=== PATIENT | male | born 1945 | race Caucasian/White ===

== ENCOUNTER 2016-10-24 13:38 | Observation (INO) ==
--- NOTE | 2016-10-24 13:48 | Emergency Department Note ---
Disposition Clinical Impression: Acute kidney injury, UTI (urinary tract infection), Pneumonia Disposition: Admitted As Inpatient Referrals: Aliyah Moore MD [Primary Care Provider] - General Adult HPI - General Stated complaint: dehydrated Time Seen by Provider: 10/24/16 13:48 Source: patient Mode of arrival: EMS Nursing Notes Reviewed: Yes Vital Signs Reviewed: Yes - History of Present Illness HPI Narrative: 71-year-old obese white male presents to emergency department via ambulance, from local [facility] with apparent dehydration. The patient is able to provide no history. He says that he is not sure why he is here, but says he has been coughing a little bit. - Related Data Home Medications Medication Instructions Recorded Confirmed Carvedilol [Coreg] 25 mg PO BID 04/20/15 10/24/16 Isosorbide MONOnitrate (24 HR) 120 mg PO DAILY 04/20/15 10/24/16 [Imdur] Lisinopril [Zestril] 40 mg PO DAILY 04/20/15 10/24/16 Omeprazole [PriLOSEC] 20 mg PO DAILY 04/20/15 10/24/16 Atorvastatin [Lipitor] 20 mg PO HS 05/28/15 10/24/16 Citalopram [CeleXA] 20 mg PO DAILY 05/28/15 10/24/16 Magnesium Oxide [Mag-Ox] 400 mg PO BID 05/28/15 10/24/16 Warfarin [Coumadin] 9 mg PO DAILY 05/28/15 10/24/16 Ipratropium/Albuterol Neb [Duoneb] 3 ml IH Q6HR 06/20/15 10/24/16 L. Acidophilus/Pectin, [place] 1 each PO BID 06/20/15 10/24/16 [Acidophilus Probiotic Capsule] Ferrous Sulfate 325 mg PO DAILY 07/21/15 10/24/16 Furosemide [Lasix] 80 mg PO BID 07/21/15 10/24/16 Gabapentin [Neurontin] 300 mg PO TID 07/21/15 10/24/16 Diltiazem CD (24hr) [Cardizem CD] 180 mg PO DAILY 08/21/15 10/24/16 Insulin ASPART [NovoLOG] 6 unit SQ TIDWM 08/21/15 10/24/16 Vitamin B Complex/Vit C/Vit E 1 tab PO DAILY 08/21/15 10/24/16 [Stresstab] Cholecalciferol (Vitamin D3) 50,000 unit PO QMONTH 07/26/16 10/24/16 [Vitamin D] Insulin DETEMIR [Levemir] 60 unit SQ HS 07/26/16 10/24/16 Metformin [Glucophage] 500 mg PO DAILY 07/26/16 10/24/16 Tizanidine HCl [Zanaflex] 2 mg PO QID 07/26/16 10/24/16 Fluticasone/Salmeterol [Advair 1 each IH BID 10/24/16 10/24/16 500-50 Diskus] Promethazine [Phenergan] 25 mg RC Q4H PRN 10/24/16 10/24/16 Previous Rx's Medication Instructions Recorded Docusate [Colace] 100 mg PO BID PRN #0 capsule 08/30/15 Montelukast [Singulair] 10 mg PO DAILY tablet 08/30/15 Spironolactone [Aldactone] 25 mg PO DAILY tablet 08/30/15 Allergies Allergy/AdvReac Type Severity Reaction Status Date / Time No Known Allergies Allergy Verified 07/21/15 20:15 Limitations: ROS unobtainable due to patients medical condition Respiratory: Reports: cough Past Medical History - Past Medical History Medical history: Reports: atrial fibrillation, CHF, COPD, coronary artery disease, diabetes, GERD, hyperlipidemia, hypertension, myocardial infarction, peripheral artery disease, renal disease, other Surgical history: Reports: other Psychiatric history: Reports: anxiety - Social History Smoking Status: Former smoker Smokeless Tobacco Status: No Alcohol use: Reports: none Drug use: Reports: none Physical Exam - General General appearance: alert - Head Head exam: atraumatic, normocephalic, normal inspection - Eye Eye exam: Present: normal appearance, PERRL, EOMI - ENT ENT exam: normal exam, normal oropharynx, mucous membranes moist - Neck Neck exam: Present: normal inspection, full ROM, trachea midline - Chest Chest inspection: Present: normal inspection, symmetric chest wall rise - Respiratory Respiratory exam: Present: normal lung sounds bilaterally. Absent: respiratory distress, wheezes - Cardiovascular Cardiovascular exam: Present: regular rate, normal rhythm, normal heart sounds - Abdominal Exam Abdominal exam: Present: soft, Non-Tender. Absent: tenderness, distention, guarding, rebound, rigidity - Extremities Exam Extremities exam: Present: full ROM, normal capillary refill, other (Right AKA) . Absent: tenderness - Expanded Lower Extremity Exam Hip/Pelvis exam: Present: normal inspection, full ROM - Back Exam Back exam: Present: normal inspection, full ROM. Absent: tenderness, CVA tenderness (R), CVA tenderness (L) - Neurological Exam Neurological exam: Present: alert, CN II-XII intact, other (Oriented to person) . Absent: motor sensory deficit - Psychiatric Psychiatric exam: Present: normal affect, normal mood - Skin Skin exam: Present: warm, dry, intact, normal color Course Course Narrative: Patient remained stable throughout his emergency department stay. After reviewing his labs and x-ray the patient will be made for the hospital for Dr. Walton. Dr. Walton at 1500 and holding orders will be written for him. Vital Signs Temperature 97.0 F L 10/24/16 14:00 Pulse Rate 69 10/24/16 14:00 Respiratory Rate 18 10/24/16 14:00 Blood Pressure 109/61 10/24/16 14:00 O2 Sat by Pulse Oximetry 98 10/24/16 14:00 Temperature 97.0 F L 10/24/16 14:00 Pulse Rate 81 10/24/16 15:09 Respiratory Rate 20 10/24/16 15:09 Blood Pressure 95/56 10/24/16 15:09 O2 Sat by Pulse Oximetry 95 10/24/16 15:09 Oxygen Delivery Oxygen Delivery Nasal Cannula Medical Decision Making - Lab Data Lab results reviewed: Yes I reviewed the patient's lab results. Result diagrams: 10/24/16 14:15 10/24/16 14:15 Lab Results 10/24/16 10/24/16 10/24/16 Range/Units 14:15 14:15 14:17 WBC 13.1 H (4.3-11.1) K/mcL RBC 4.16 L (4.19-5.50) M/mcL Hgb 11.0 L (12.9-16.9) g/dL Hct 35.4 L (37.5-50.1) % MCV 85.1 (83.0-100.0) fL MCH 26.4 L (28.0-33.3) pg MCHC 31.1 L (31.6-35.5) g/dL RDW 15.8 H (11.5-14.5) % Plt Count 221 (140-400) K/mcL MPV 10.6 (9.4-12.4) fL Immature Gran % 0.6 (0-4) % Seg Neutrophils % 82.8 % Lymphocytes % 10.6 % Monocytes % 4.1 % Eosinophils % 1.4 % Basophils % 0.5 % Neutrophils # 10.9 H (1.6-8.9) K/mcL Lymphocytes # 1.4 (0.6-4.6) K/mcL Monocytes # 0.5 (0.0-1.3) K/mcL Eosinophils # 0.2 (0.0-0.6) K/mcL Basophils # 0.1 (0.0-0.2) K/mcL Sodium 134 L (136-145) mEq/L Potassium 5.6 H (3.5-4.5) mEq/L Chloride 97 L (98-109) mEq/L Carbon Dioxide 26 (19-29) mEq/L BUN 80 H (8-26) mg/dL Creatinine 3.24 H (0.72-1.25) mg/dL Est GFR ( Amer) 23 L (> 60) Est GFR (Non-Af Amer) 19 L (> 60) BUN/Creatinine Ratio 25 (6-26) Glucose 251 H (70-99) mg/dL Calculated Osmolality 311 H (280-300) Calcium 9.5 (8.6-10.8) mg/dL Total Bilirubin 0.3 (0.2-1.2) mg/dL AST 12 (5-34) Units/L ALT 14 (0-55) Units/L Alkaline Phosphatase 88 (38-126) Units/L Serum Total Protein 7.5 (6.0-8.3) g/dL Albumin 3.2 L (3.5-5.0) g/dL Globulin 4.3 H (2.4-3.5) g/dL Albumin/Globulin Ratio 0.7 L (1.1-2.2) Urine Color Yellow (Yellow) Urine Clarity Cloudy A (Clear) Urine pH >=9.0 H (5.0-8.0) pH Units Ur Specific [place] 1.010 (1.010-1.025) Urine Protein >=300 H (Neg-Trace) mg/dL Urine Glucose (UA) Normal (Normal) mg/dL Urine Ketones Negative (Negative) mg/dL Urine Blood Small H (Negative) Urine Nitrite Negative (Negative) Urine Bilirubin Negative (Negative) Urine Urobilinogen Normal (Normal) mg/dL Ur Leukocyte Esterase Large H (Negative) Urine Microscopic RBC 0-3 (0-3) per hpf Urine Microscopic WBC 5-15 H (0-3) per hpf Triple Phos Crystals Present Amorphous Sediment Many H (Few) Urine Bacteria Many H (None-Few) per hpf Ur Culture Indicated? YES A (NO) - Radiology Data Radiology results reviewed: Yes I reviewed the patient's radiology results. 1 view chest x-ray read by Dr. Conner and stable cardiomegaly questionable left basilar airspace disease consistent with atelectasis or pneumonia.
[2016-10-24 14:29] LABS: Bilirubin,Urine Negative (Negative); Blood,Urine Small (Negative); Clarity,Urine Cloudy (Clear); Color,Urine Yellow (Yellow); Glucose,Urine (UA) Normal (Normal); Ketones,Urine Negative (Negative); Leukocyte Esterase,Urine Large (Negative); Nitrite,Urine Negative (Negative); PH,Urine >=9.0 pH Units (5.0-8.0); Protein,Urine >=300 mg/dL (Neg-Trace); Urobilinogen,Urine Normal (Normal)
[2016-10-24 14:30] LABS: Basophils # 0.1 K/mcL (0.0-0.2); Basophils % 0.5 %; Eosinophils # 0.2 K/mcL (0.0-0.6); Eosinophils % 1.4 %; Hematocrit 35.4 % (37.5-50.1); Immature Granulocytes % 0.6 % (0-4); Lymphocytes # 1.4 K/mcL (0.6-4.6); Lymphocytes % 10.6 %; Mean Corpuscular HGB Conc 31.1 g/dL (31.6-35.5); Mean Corpuscular Hemoglobin 26.4 pg (28.0-33.3); Mean Corpuscular Volume 85.1 fL (83.0-100.0); Mean Platelet Volume 10.6 fL (9.4-12.4); Monocytes # 0.5 K/mcL (0.0-1.3); Monocytes % 4.1 %; Platelet Count 221 K/mcL (140-400); Red Blood Count 4.16 M/mcL (4.19-5.50); Red Cell Distribution Width 15.8 % (11.5-14.5); Segmented Neutrophils % 82.8 %
[2016-10-24 14:31] LABS: Neutrophils # 10.9 K/mcL (1.6-8.9)
[2016-10-24 14:34] LABS: Triple Phosphate Crystal,Urine Present
[2016-10-24 14:35] LABS: Amorphous Sediment,Urine Many (Few); Bacteria,Urine Many per hpf (None-Few); RBC,Urine 0-3 per hpf (0-3)
[2016-10-24 14:36] LABS: Albumin 3.2 g/dL (3.5-5.0); Albumin/Globulin Ratio 0.7 (1.1-2.2); Bilirubin,Total 0.3 mg/dL (0.2-1.2); Calcium 9.5 mg/dL (8.6-10.8); Globulin 4.3 g/dL (2.4-3.5); Potassium 5.6 mEq/L (3.5-4.5); Total Protein 7.5 g/dL (6.0-8.3)
[2016-10-24] MEDS ORDERED: 0.9 % Sodium Chloride 500 ML IV.SOLN IV ONE (14:38)
[2016-10-24] MEDS ORDERED: CefTRIAXone 1,000 MG in D5% in Water (Mini-Bag+) 100 ML IVPB ONE (14:38)
[2016-10-24] MEDS ORDERED: Naloxone 0.4 MG/ML INJ IVP PRN (15:54)
[2016-10-24] MEDS ORDERED: *HR* HYDROcodone/Acet 5/325 mg TABLET PO PRN (15:54)
[2016-10-24] MEDS ORDERED: *HR* OxyCODONE Immed Rel 5 MG TABLET PO PRN (15:54)
[2016-10-24] MEDS ORDERED: Ondansetron ODT 4 MG TAB.RAPDIS SL PRN (15:54)
[2016-10-24] MEDS ORDERED: Ondansetron 4 MG/2 ML VIAL IVP PRN (15:54)
[2016-10-24] MEDS ORDERED: *HR* Promethazine 25 MG/ML VIAL IVP PRN (15:54)
[2016-10-24] MEDS ORDERED: Acetaminophen 325 MG TABLET PO PRN (15:54)
--- NOTE | 2016-10-24 16:24 | Internal Med History&Physical ---
Date of Encounter: 10/25/16 Time of Encounter: 16:22 Assessment and Plan (1) Acute kidney injury Current visit: Yes Status: Acute In trying to hydrate and follow renal function. (2) Pneumonia Current visit: Yes Status: Acute Patient is here for possible pneumonia noted in upper and lower lobes bilaterally will follow Qualifiers: Pneumonia type: aspiration pneumonia Aspiration pneumonia type: unspecified Lung location: lower lobe of lung Qualified Code(s): J69.0 - Pneumonitis due to inhalation of food and vomit (3) UTI (urinary tract infection) Current visit: Yes Status: Acute Qualifiers: Hematuria presence: without hematuria Qualified Code(s): N39.0 - Urinary tract infection, site not specified (4) Chronic indwelling Walker catheter Current visit: No Status: Acute Internal Medicine - H&P: HPI Chief complaint: snf and thought maybe was dehydrated. Admitted From: Long-term Nursing Facility Plans for Post Hospital Care: Transfer Retrieval Specialist Care History of present illness: Mr. Romo is a 71 year old male The patient be evaluated hydrated and also treated for possible pneumonia and UTI Past Med Surg Social Fam HX - Past Medical History Medical history: atrial fibrillation, CHF, COPD, coronary artery disease, diabetes, GERD, hyperlipidemia, hypertension, myocardial infarction, peripheral artery disease, renal disease, other Psychiatric history: anxiety - Past Surgical History Surgical History: other - Social History Smoking Status: Former smoker Smokeless Tobacco Status: No Alcohol use: none Drug use: none - Family History Mother Adopted: No Family Member Ethnicity: Non- Living Status: Hx Family Cardiac Disorders: No Hx Family Respiratory Disorders: No Hx Family Cancer: Yes Hx Family GI Disorders: No Hx Family Endocrine Disorder: No Hx Family Neuromuscular Disorders: No Hx Family Neurologic Disorders: No Hx Family HEENT Disorders: No Hx Family Autoimmune Disorders: No Internal Medicine - H&P: Meds Carvedilol [Coreg] 25 mg PO BID 04/20/15 [History] Isosorbide MONOnitrate (24 HR) [Imdur] 120 mg PO DAILY 04/20/15 [History] Lisinopril [Zestril] 40 mg PO DAILY 04/20/15 [History] Omeprazole [PriLOSEC] 20 mg PO DAILY 04/20/15 [History] Atorvastatin [Lipitor] 20 mg PO HS 05/28/15 [History] Citalopram [CeleXA] 20 mg PO DAILY 05/28/15 [History] Magnesium Oxide [Mag-Ox] 400 mg PO BID 05/28/15 [History] Warfarin [Coumadin] 9 mg PO DAILY 05/28/15 [History] Ipratropium/Albuterol Neb [Duoneb] 3 ml IH Q6HR 06/20/15 [History] L. Acidophilus/Pectin, [place] [Acidophilus Probiotic Capsule] 1 each PO BID [History] Ferrous Sulfate 325 mg PO DAILY 07/21/15 [History] Furosemide [Lasix] 80 mg PO BID 07/21/15 [History] Gabapentin [Neurontin] 300 mg PO TID 07/21/15 [History] Diltiazem CD (24hr) [Cardizem CD] 180 mg PO DAILY 08/21/15 [History] Insulin ASPART [NovoLOG] 6 unit SQ TIDWM 08/21/15 [History] Vitamin B Complex/Vit C/Vit E [Stresstab] 1 tab PO DAILY 08/21/15 [History] Docusate [Colace] 100 mg PO BID PRN #0 capsule 08/30/15 [Rx] Montelukast [Singulair] 10 mg PO DAILY tablet 08/30/15 [Rx] Spironolactone [Aldactone] 25 mg PO DAILY tablet 08/30/15 [Rx] Cholecalciferol (Vitamin D3) [Vitamin D] 50,000 unit PO QMONTH 07/26/16 [History ] Insulin DETEMIR [Levemir] 60 unit SQ HS 07/26/16 [History] Metformin [Glucophage] 500 mg PO DAILY 07/26/16 [History] Tizanidine HCl [Zanaflex] 2 mg PO QID 07/26/16 [History] Fluticasone/Salmeterol [Advair 500-50 Diskus] 1 each IH BID 10/24/16 [History] Promethazine [Phenergan] 25 mg RC Q4H PRN 10/24/16 [History] Allergies No Known Allergies Allergy (Verified 07/21/15 20:15) All Systems PM: A 10-system review of systems was performed and is negative for pertinent findings except as documented above in the HPI. - Constitutional Vitals: Temp Pulse Resp BP Pulse Ox 98.7 F 72 22 105/55 95 02/23/17 16:16 10/24/16 15:54 10/24/16 16:16 10/24/16 16:16 10/24/16 15:54 General appearance: Present: morbidly obese - Head Head exam: Present: atraumatic, normal inspection, normocephalic - Neck Neck exam general surgery: Present: supple, trachea midline. Absent: lymphadenopathy - Respiratory Respiratory exam: Present: CTAB. Absent: accessory muscle use, rales, rhonchi, wheezes - Cardiovascular Cardiovascular exam: Present: RRR, +S1, +S2. Absent: diastolic murmur, gallop, rubs, systolic murmur - GI/Abdominal GI/Abdominal exam: Present: normal bowel sounds, soft, no peritoneal signs. Absent: distended, tenderness - Neurological Exam Neurological exam: Present: CN II-XII intact, oriented X3, no focal deficits. Absent: pronater drift, facial droop, speech deficit Internal Med - H&P Results - Labs CBC & Chem 7: 10/24/16 14:15 10/24/16 14:15 Labs: CV acute renal changes. Obviously acute renal failure
[2016-10-24] MEDS: Cholecalciferol (D-3) 1,000 UNIT TABLET PO SCH (18:05)
[2016-10-24] MEDS: Insulin LISPRO 300 UNITS/3 ML VIAL SQ SCH (18:05)
[2016-10-24] MEDS: 0.9 % Sodium Chloride 1,000 ML IVC SCH (18:16)
[2016-10-24] MEDS: Furosemide 40 MG TABLET PO SCH (18:17)
[2016-10-24] MEDS ORDERED: Budesonide/Formoterol 160/4.5 MDI IH ONE (20:01)
[2016-10-24] MEDS ORDERED: Ipratropium/Albuterol Neb 3 ML ONE (20:01)
[2016-10-24] MEDS: Magnesium Oxide 400 MG TABLET PO SCH (20:13)
[2016-10-24] MEDS: Lactobacillus 1 EACH CAP.SPRINK PO SCH (20:13)
[2016-10-24] MEDS: Gabapentin 300 MG CAPSULE PO SCH (20:14)
[2016-10-24] MEDS: Budesonide/Formoterol 160/4.5 MDI IH SCH (20:15)
[2016-10-24] MEDS: Ipratropium/Albuterol Neb 3 ML IH SCH (20:15)
[2016-10-24] MEDS ORDERED: Insulin DETEMIR 100 UNIT/ML X5UNITS SQ SCH (21:00)
[2016-10-25] MEDS: Ipratropium/Albuterol Neb 3 ML IH SCH ×2 (05:41→11:25)
[2016-10-25] MEDS ORDERED: *HR* Warfarin 10 MG TABLET PO SCH (09:00)
[2016-10-25] MEDS ORDERED: Lisinopril 20 MG TABLET PO SCH (09:00)
[2016-10-25] MEDS ORDERED: *HR* Metformin 500 MG TABLET PO SCH (09:00)
[2016-10-25] MEDS ORDERED: Spironolactone 25 MG TABLET PO SCH (09:00)
[2016-10-25] MEDS ORDERED: Diltiazem CD (24hr) 180 MG CAPSULE PO SCH (09:00)
[2016-10-25] MEDS ORDERED: Isosorbide MONOnitrate (24 HR) 60 MG TAB.ER.24H PO SCH (09:00)
[2016-10-25] MEDS ORDERED: Vitamin B Complex/Vit C/Vit E 1 EACH TABLET PO SCH (09:00)
[2016-10-25] MEDS: Insulin LISPRO 300 UNITS/3 ML VIAL SQ SCH ×2 (09:15→11:30)
[2016-10-25] MEDS: 0.9 % Sodium Chloride 1,000 ML IVC SCH (09:15)
[2016-10-25] MEDS: Lactobacillus 1 EACH CAP.SPRINK PO SCH (11:19)
[2016-10-25] MEDS: Furosemide 40 MG TABLET PO SCH (11:19)
[2016-10-25] MEDS: Magnesium Oxide 400 MG TABLET PO SCH (11:19)
[2016-10-25] MEDS: Cholecalciferol (D-3) 1,000 UNIT TABLET PO SCH (11:20)
[2016-10-25] MEDS: Gabapentin 300 MG CAPSULE PO SCH (11:20)
[2016-10-25] MEDS: Budesonide/Formoterol 160/4.5 MDI IH SCH (11:25)
[2016-10-25 12:06] VITALS: BP 126/58
[2016-10-25 12:14] LABS: Calcium 9.1 mg/dL (8.6-10.8); Potassium 5.7 mEq/L (3.5-4.5)
[2016-10-25 15:31] LABS: ABG PH 7.21 pH Units (7.32-7.45)
[2016-10-25 15:32] LABS: INR 1.7; Prothrombin Time 18.7 Seconds (9.4-12.1)
[2016-10-25 15:32] LABS: ABG Base Excess -0.1 mEq/L (-2.0 to 3.0); ABG HCO3 29.5 mEQ/L (21-27); ABG Oxygen Saturation 88 % (95-98); ABG PO2 69 mmHg (85-104); ABG TCO2 31.8 mEq/L (20-26)
[2016-10-25 15:34] LABS: ABG PCO2 74 mmHg (35-45)
[2016-10-25 15:36] LABS: Blood Gas FiO2 50 %; Blood Gas Liter Flow 15 L/MIN
[2016-10-25] MEDS ORDERED: *HR* Warfarin 3 MG TABLET PO SCH (18:00)
[2016-10-25] MEDS ORDERED: Gabapentin 300 MG CAPSULE PO SCH (21:00)
== END 2016-10-25 17:00 ==
LOC: INPGRE 13:38 → EMEROOGRE 13:38 → INPGRE 16:17
PROVIDERS: ADMIT Internal Medicine; ATTEND Internal Medicine